=== PATIENT | female | born 1945 | race Caucasian/White ===

== ENCOUNTER → 2016-07-03 | Outpatient (CLI) | payer OTHER ==
--- NOTE | 2016-07-03 13:16 | DIAGNOSTIC IMAGING REPORT ---
MRI LEFT SHOULDER NO CONTRAST CLINICAL HISTORY: Left shoulder pain COMPARISON STUDY: No previous studies for comparison. FINDINGS: Imaging was performed the sagittal, coronal, and axial planes. There are no areas of marrow replacement to indicate occult fracture or neoplasm. The bicipital tendon appears intact. No labral tears are visualized on this nonarthrographic study. Degenerative changes are present within the chromic clavicular joint. There is no evidence of rotator cuff tear. There is minimal increased signal within the musculotendinous junction supraspinatus. A proximal tendinopathy is suspected. IMPRESSION: 1. Minimal increased signal within the musculotendinous junction of the supraspinatus. A proximal tendinopathy is suspected 2. No evidence of full-thickness rotator cuff tear 3. No evidence of bicipital tendon tear 3. No evidence of suspicious marrow replacement Electronically signed by: Gonzalez Suárez M.D. 07/03/2016 1:14 PM Dictated Date/Time: 07/03/2016 1:10 PM
== END | disposition home or self-care (01) ==
LOC: C.MRIBC 12:14
PROVIDERS: ATTEND Orthopaedic Surgery
DX: M25.512 Pain in left shoulder (principal)